=== PATIENT | female | born 1985 | race American Indian/Alaskan Native ===

== ENCOUNTER 2016-11-26 11:46 | Emergency (ER) | payer SELFPAY ==
[2016-11-26] MEDS ORDERED: MOTRIN PO ONE (13:00)
--- NOTE | 2016-11-26 13:05 | Emergency Department Report ---
- General Chief Complaint: Sore Throat Stated Complaint: COUGH/BODY PAIN Time Seen by Provider: 11/26/16 12:04 Source: patient Mode of arrival: Ambulatory Limitations: No Limitations - History of Present Illness Initial Comments: Patient presents complaining of dry, nonproductive cough, sore throat, body aches, sweats, and headaches 2 days. States she coughs to the point where her chest starts to hurt. Denies difficulty breathing or shortness of breath, acid reflux, fever, chills, nausea, vomiting, diarrhea, abdominal flank pain, weakness, dizziness. Denies history of asthma or other lung diseases. States she just moved here from [place] and doesn't have a PCP yet. Denies other acute complaints today. LMP 2 weeks ago. - Related Data Previous Rx's Medication Instructions Recorded Last Taken Type ALBUTEROL Inhaler [ProAir HFA 1 puff IH Q4HR PRN #1 inha 11/26/16 Unknown Rx Inhaler] Benzonatate [Tessalon Perles] 100 mg PO Q8HR PRN #30 capsule 11/26/16 Unknown Rx Ibuprofen [Motrin] 800 mg PO Q8HR PRN #21 tablet 11/26/16 Unknown Rx Allergies Allergy/AdvReac Type Severity Reaction Status Date / Time No Known Allergies Allergy Verified 11/26/16 11:57 ED Review of Systems ROS: Stated complaint: COUGH/BODY PAIN Other details as noted in HPI Comment: All other systems reviewed and negative ED Past Medical Hx - Past Medical History Previous Medical History?: No - Surgical History Past Surgical History?: Yes Additional Surgical History: tonsil, left knee - Social History Smoking Status: Current Every Day Smoker Substance Use Type: Alcohol - Medications Home Medications: Home Medications Medication Instructions Recorded Confirmed Last Taken Type ALBUTEROL Inhaler [ProAir HFA 1 puff IH Q4HR PRN #1 inha 11/26/16 Unknown Rx Inhaler] Benzonatate [Tessalon Perles] 100 mg PO Q8HR PRN #30 capsule 11/26/16 Unknown Rx Ibuprofen [Motrin] 800 mg PO Q8HR PRN #21 tablet 11/26/16 Unknown Rx ED Physical Exam - General Limitations: No Limitations General appearance: alert, in no apparent distress, other (well-developed, well- nourished, nontoxic-appearing.) - Head Head exam: Present: atraumatic, normocephalic - Eye Eye exam: Present: normal appearance, PERRL, EOMI. Absent: scleral icterus, conjunctival injection, periorbital swelling, periorbital tenderness - ENT ENT exam: Present: normal exam, normal orophraynx (no tonsillar pharyngeal edema , erythema, or exudates.), mucous membranes moist, TM's normal bilaterally, normal external ear exam, other (no frontal or maxillary sinus tenderness on palpation.) - Neck Neck exam: Present: normal inspection, full ROM, lymphadenopathy (tender). Absent: tenderness, meningismus - Respiratory Respiratory exam: Present: normal lung sounds bilaterally, wheezes (minimal b/l) . Absent: respiratory distress, rales, rhonchi, stridor, chest wall tenderness , accessory muscle use, decreased breath sounds, prolonged expiratory - Cardiovascular Cardiovascular Exam: Present: regular rate, normal rhythm - GI/Abdominal GI/Abdominal exam: Present: soft, normal bowel sounds. Absent: distended, tenderness - Extremities Exam Extremities exam: Present: normal inspection, full ROM, normal capillary refill. Absent: tenderness, pedal edema, joint swelling - Back Exam Back exam: Present: normal inspection, full ROM. Absent: CVA tenderness (R), CVA tenderness (L) - Neurological Exam Neurological exam: Present: alert, oriented X3, normal gait, reflexes normal. Absent: motor sensory deficit - Psychiatric Psychiatric exam: Present: normal affect, normal mood - Skin Skin exam: Present: warm, dry, intact, normal color. Absent: rash, cyanosis, diaphoretic, erythema, petechiae, pallor, abrasion, ecchymosis ED Course Vital Signs 11/26/16 11:53 Temperature 98.7 F Pulse Rate 102 H Respiratory 16 Rate Blood Pressure 104/68 O2 Sat by Pulse 98 Oximetry Critical care attestation.: If time is entered above; I have spent that time in minutes in the direct care of this critically ill patient, excluding procedure time. ED Disposition Clinical Impression: Bronchitis Disposition: DISCHARGED TO HOME OR SELFCARE Is pt being admited?: No Does the pt Need Aspirin: No Condition: Stable Instructions: Acute Bronchitis (ED) Referrals: [facility] [Outside] - 3-5 Days
[2016-11-26 13:39] VITALS: BP 110/71
== END 2016-11-26 13:39 | disposition home or self-care (01) ==
LOC: ED 11:46
DX: J40 Bronchitis, not specified as acute or chronic (principal); F17.200 Nicotine dependence, unspecified, uncomplicated
CPT/HCPCS: 87116; 87400; 87430; 99282